=== PATIENT | male | born 2005 | race African-American/Black ===

== ENCOUNTER 2024-05-09 10:11 | Emergency (ER) | payer OTHER, SELFPAY ==
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
[2024-05-09 10:18] VITALS: BP 117/69; PULSE 82; RESP 20; TEMP 36.4; O2SAT 100
[2024-05-09] MEDS: LIDOCAINE 5% PATCH 1 PATCH TRANSDERM (11:06)
[2024-05-09] MEDS: ACETAMINOPHEN 500 MG TABLET 1000 MG PO (11:07)
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
[2024-05-09] MEDS: NAPROXEN 500 MG TABLET PO (12:14)
[2024-05-09 12:19] VITALS: BP 121/85; PULSE 62; RESP 18; TEMP 37.1; O2SAT 100
== END 2024-05-09 12:20 | disposition home or self-care (01) ==
PROVIDERS: Emergency Provider Preventive Medicine Aerospace Medicine
DX: R07.89 Other chest pain (principal); S20.212A Contusion of left front wall of thorax, initial encounter; F17.210 Nicotine dependence, cigarettes, uncomplicated
CPT/HCPCS: 71045; 71250; 99284; A9270